=== PATIENT | male | born 2000 | race Caucasian/White ===

== ENCOUNTER 2022-06-06 10:23 | Emergency (ER) | payer OTHER, SELFPAY ==
--- NOTE | ~2022-06-06 | XR_ITS ---
EXAMINATION: XR CHEST CLINICAL INFORMATION: Chest pain COMPARISON: 03/11/2017 TECHNIQUE: 2 views of the chest were obtained. FINDINGS: Lungs are clear. No focal consolidation or mass. Normal pulmonary vascularity. No pleural effusion or pneumothorax. Normal heart size. No acute osseous abnormality. XR/XR chest 2V IMPRESSION: No acute pulmonary disease.
[2022-06-06 10:51] VITALS: BP 157/92; PULSE 57; RESP 17; TEMP 36.6; O2SAT 98; BMI 19.1
--- NOTE | 2022-06-06 11:14 | ECG_ITS ---
Test Reason : chest pain Blood Pressure : / mmHG Vent. Rate : 056 BPM Atrial Rate : 056 BPM P-R Int : 124 ms QRS Dur : 086 ms QT Int : 388 ms P-R-T Axes : 084 096 052 degrees QTc Int : 374 ms Sinus bradycardia Rightward axis Pulmonary disease pattern Abnormal ECG No previous ECGs available Referred By: Generic ED Physician Electronically Signed By:Calin Regalado
[2022-06-06 11:40] LABS: MANUAL DIFF FLAG NO
[2022-06-06 11:44] LABS: Basophils Percent Auto 0.3 % (0-2); Eosinophils Absolute Auto 0.1 X10*3/uL (0.0-0.4); Eosinophils Percent Auto 0.9 % (0-4); Hematocrit 45.7 % (42.0-52.0); Hemoglobin 15.5 g/dl (14.0-18.0); Imm Gran Abs Auto 0.02 X10*3/uL (0.00-0.03); Imm Gran Pct Auto 0.3 % (0.0-0.4); Lymphocytes Absolute Auto 1.9 X10*3/uL (1.2-4.9); Lymphocytes Percent Auto 24.3 % (20-40); Mean Corpuscular HGB Conc 33.9 g/dl (31.0-36.0); Mean Corpuscular Hemoglobin 30.8 pg (27.0-33.0); Mean Corpuscular Volume 90.7 fL (80.0-98.0); Mean Platelet Volume 10.1 fL (9.4-12.4); Monocytes Absolute Auto 0.5 X10*3/uL (0.1-1.2); Monocytes Percent Auto 6.5 % (2-11); Neutrophils Absolute Auto 5.2 x10*3/uL (2.0-8.3); Neutrophils Percent Auto 67.7 % (45-73); Platelet Count 242 X10*3/uL (160-400); Red Blood Count 5.04 X10*6/uL (4.60-5.80); Red Cell Distribution Width 12.5 % (11.0-16.0); White Blood Count 7.6 X10*3/uL (4.8-10.8)
[2022-06-06 11:59] LABS: Anion Gap 9 (12-20); Blood Urea Nitrogen 11 mg/dL (9-16); Calcium 9.4 mg/dL (8.4-10.2); Carbon Dioxide 30 mmol/L (22-29); Chloride 103 mmol/L (96-108); Creatinine Clr Calc Pharmacy 87.1; Estimated Glomerular Filt Rate > 60; Glucose Random 73 mg/dL (60-115); Sodium 137 mmol/L (135-145)
[2022-06-06 12:03] LABS: Troponin-I High Sensitivity < 3.5 ng/L (<3.5-35.0)
== END 2022-06-06 19:21 | disposition left against medical advice (07) ==
LOC: HO.ED 19:20
PROVIDERS: Emergency Provider Emergency Medicine
DX: R07.89 Other chest pain (principal); Z79.899 Other long term (current) drug therapy
CPT/HCPCS: 36415; 71046; 80048; 84484; 85025; 93005; 99283

== ENCOUNTER 2022-08-28 00:16 | Emergency (ER) | payer OTHER, SELFPAY ==
--- NOTE | ~2022-08-28 | XR_ITS ---
EXAMINATION: XR ANKLE, LEFT CLINICAL INFORMATION: Rolled left ankle, swelling COMPARISON: None TECHNIQUE: AP, lateral, and mortise views of the left ankle. FINDINGS: Osseous alignment is anatomic. No acute fracture is seen. There is soft tissue swelling which is most prominent laterally. XR/XR ankle LT 2V IMPRESSION: No fracture identified. Lateral soft tissue swelling.
[2022-08-28 00:54] VITALS: BP 130/56; PULSE 65; RESP 16; TEMP 36.8; O2SAT 98; BMI 20.3
[2022-08-28 02:36] VITALS: BP 116/56; PULSE 54; RESP 17; TEMP 36.8; O2SAT 98
--- NOTE | 2022-08-28 03:12 | ED.LOWEXIN ---
HPI - Extremity Injury (Lower) General Chief Complaint: Extremity Injury, Lower Stated Complaint: ankle pain Time Seen by Provider: 08/28/22 03:10 History of Present Illness HPI Narrative: Patient is a 21-year-old male presents today with having ankle pain. Ankle pain is over the left side. Happen after twisting ankle during a softball game complaining of pain when he walks. No systemic complaints patient not on blood thinners. Pain is localized. Related Data Previous Rx's Medication Instructions Recorded diclofenac sodium 75 mg 75 mg PO BID 5 days #10 tabs 06/07/22 tablet,delayed release Allergies Allergy/AdvReac Type Severity Reaction Status Date / Time No Known Allergies Allergy Verified 06/07/22 09:57 Review of Systems Review of Systems: No fever no chills or diaphoresis Yes all other systems are reviewed and are negative [facility] Past Medical History Attestation statement: The following information was validated with the patient. Social History Social History Advance Directives: No Physical Exam Vital Signs: Vital Signs: Last Vital Signs Temp 98.2 F 08/28/22 02:36 Pulse 54 08/28/22 02:36 Resp 17 08/28/22 02:36 BP 116/56 L 08/28/22 02:36 Pulse Ox 98 08/28/22 02:36 O2 Del Method 08/28/22 02:36 BMI result Body Mass Index 20.3 Appearance: Alert. Oriented X3. No acute distress. Eyes: Pupils equal, round and reactive to light. ENT: Pharynx normal. Neck: Normal inspection. Neck supple. No lymph nodes noted. No crepitus CVS: Normal heart rate and rhythm. Pulses normal. Normal S1 and S2 Respiratory: No respiratory distress. Breath sounds normal. No Wheezing. No rales Abdomen: Soft and nontender. No rigidity. No distention. good BS x4 Skin: Skin warm and dry. Normal skin color. Normal skin turgor. Extremities: Examination of the left ankle shows mild swelling to the lateral malleolus. Minimal tenderness on palpation of the posterior aspect of the lateral malleolus on the left. Distal pulses intact. No tenderness on palpation to the base of the 5th metatarsal. Range of motion grossly intact. Pulse 2 +at dorsalis pedis. Capillary refill less than 2 seconds. Skin. Neuro: Oriented X 3. No motor deficit. No sensory deficit. Moving all extermities. No slurred speech MDM - Extremity Injury (Lower) MDM Narrative Medical decision making narrative: X-ray showed no acute fractures. Will discharge patient home. Motrin for pain. In stable condition. Discharge Plan Discharge Clinical Impression: Ankle sprain and strain Patient Disposition: Home, Self-Care Instructions: Ankle Sprain (ED) Prescriptions: No Action diclofenac sodium 75 mg tablet,delayed release (DR/EC) 75 mg PO BID 5 Days Qty: 10 0RF Referrals: Victor M Calles MD [Physician] - (Rest ice Motrin for pain.)
--- NOTE | 2022-08-28 03:33 | PC.NURSE ---
Pt. refused Ibuprofen prior to discharge. Air cast applied to pt. by water treatment technician.
== END 2022-08-28 03:35 | disposition home or self-care (01) ==
PROVIDERS: Emergency Provider Emergency Medicine Emergency Medical Services
DX: S93.402A Sprain of unspecified ligament of left ankle, initial encounter (principal); M25.572 Pain in left ankle and joints of left foot; X50.1XXA Overexertion from prolonged static or awkward postures, initial encounter; Y93.9 Activity, unspecified; Y92.9 Unspecified place or not applicable; Y99.9 Unspecified external cause status
CPT/HCPCS: 73600; 99283

== ENCOUNTER 2022-09-26 11:58 | Outpatient (REF) | payer OTHER, SELFPAY ==
[2022-09-26 12:22] LABS: Binax Now Covid-19 Ag Negative (Negative)
[2022-09-26 12:23] LABS: Binax Internal Control QC Valid; Binax Performed by: HO.BONILM
== END 2022-09-26 11:59 | disposition home or self-care (01) ==
LOC: HO.HMGCLDS 11:58
PROVIDERS: Visit Provider Nurse Practitioner Family
DX: R11.0 Nausea (principal); R52 Pain, unspecified; Z20.822 Contact with and (suspected) exposure to COVID-19
CPT/HCPCS: 87811; C9803

== ENCOUNTER 2024-05-18 13:36 | Emergency (ER) | payer OTHER, SELFPAY ==
--- NOTE | ~2024-05-18 | CT_ITS ---
EXAMINATION: CT CERVICAL SPINE WITHOUT CONTRAST CLINICAL INFORMATION: Neck injury and pain COMPARISON: None available. TECHNIQUE: Multiple 3.0 and 0.6 mm axial images were obtained from base of skull to T1 levels without IV contrast enhancement. Sagittal and coronal 2.0 mm bone window images were reconstructed from axial image data. This CT examination was performed using dose optimization techniques as appropriate, variously including the following: *Automated exposure control *Adjustment of mA and/or kV according to patient size (this includes techniques or standardized protocols for targeted exams where dose is matched to indication/reason for exam; i.e. extremities or head) *Use of iterative reconstruction technique DLP: 278.88 mGy-cm FINDINGS: C1/C2: Bony structures are intact with normal alignment. There is no spinal stenosis. C2/C3: Bony structures are intact with normal alignment. There is no spinal stenosis. Bilateral C2/C3 neuroforamina are patent. Bilateral apophyseal joints are intact with normal alignment. C3/C4: Bony structures are intact with normal alignment. There is no spinal stenosis. Bilateral C3/C4 neuroforamina are patent. Bilateral apophyseal joints are intact with normal alignment. C4/C5: Bony structures are intact with normal alignment. There is no spinal stenosis. Bilateral C4/C5 neuroforamina are patent. Bilateral apophyseal joints are intact with normal alignment. C5/C6: Bony structures are intact with normal alignment. There is no spinal stenosis. Bilateral C5/C6 neuroforamina are patent. Bilateral apophyseal joints are intact with normal alignment. C6/C7: Bony structures are intact with normal alignment. There is no spinal stenosis. Bilateral C6/C7 neuroforamina are patent. Bilateral apophyseal joints are intact with normal alignment. C7/T1: Bony structures are intact with normal alignment. There is no spinal stenosis. Bilateral C7/T1 neuroforamina are patent. Bilateral apophyseal joints are intact with normal alignment. CT/CT cervical spine wo IV con IMPRESSION: 1. Normal CT scan of the cervical spine. No cervical fracture or dislocation is seen. Fleischner guidelines were followed.
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
[2024-05-18 13:57] VITALS: BP 123/67; PULSE 60; RESP 14; TEMP 36.5; O2SAT 100; BMI 18.3
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
== END 2024-05-18 16:27 | disposition home or self-care (01) ==
LOC: HO.ED 16:15
PROVIDERS: Emergency Provider Emergency Medicine; PCP Nurse Practitioner Family
DX: S13.4XXA Sprain of ligaments of cervical spine, initial encounter (principal); M54.2 Cervicalgia; R51.9 Headache, unspecified; V47.5XXA Car driver injured in collision with fixed or stationary object in traffic accident, initial encounter; Y93.9 Activity, unspecified; Y92.488 Other paved roadways as the place of occurrence of the external cause; Y99.8 Other external cause status
CPT/HCPCS: 70450; 72125; 99281; 99284